=== PATIENT | male | born 1975 ===

== ENCOUNTER 2021-11-18 07:14 | Day surgery (SDC) | payer OTHER | END 2021-11-18 15:33 | disposition home or self-care (01) | LOC: CIR.AMB 07:14 | PROVIDERS: ATTEND Orthopaedic Surgery | DX: S53.32XA Traumatic rupture of left ulnar collateral ligament, initial encounter (principal); S56.212A Strain of other flexor muscle, fascia and tendon at forearm level, left arm, initial encounter; Z20.822 Contact with and (suspected) exposure to COVID-19 ==